=== PATIENT | female | born 1975 | race Caucasian/White ===

== ENCOUNTER 2016-07-04 12:19 | Outpatient (CLI) | payer MEDICAID | END 2016-07-04 12:20 | disposition home or self-care (01) | DX: Z36 Encounter for antenatal screening of mother (principal) ==

== ENCOUNTER 2016-08-05 11:11 | Outpatient (CLI) | payer MEDICAID | END 2016-08-05 11:12 | disposition home or self-care (01) | DX: Z36 Encounter for antenatal screening of mother (principal) ==

== ENCOUNTER 2016-10-20 08:00 | Outpatient (CLI) | payer MEDICAID | END 2016-10-20 08:01 | disposition home or self-care (01) | DX: Z36 Encounter for antenatal screening of mother (principal) ==

== ENCOUNTER 2016-11-14 11:03 | Outpatient (CLI) | payer MEDICAID ==
[2016-11-14 11:34] LABS: BASOPHILS # (AUTO) 0.1 10^3/uL (0.0-0.1); BASOPHILS % (AUTO) 0.8 %; EOSINOPHILS # (AUTO) 0.1 10^3/uL (0.0-0.7); HGB - HEMOGLOBIN 11.6 g/dL (12.0-16.0); LYMPHOCYTES # (AUTO) 2.5 10^3/uL (1.5-3.5); LYMPHOCYTES % (AUTO) 26.8 %; MEAN CORPUSCULAR VOLUME 88.5 fL (81.0-99.0); MEAN PLATELET VOLUME 9.3 fL (7.9-10.8); MONOCYTES # (AUTO) 0.7 10^3/uL (0.0-1.0); NEUTROPHILS % (AUTO) 64.4 %; RED BLOOD COUNT 3.73 10^6/uL (4.20-5.40); RED CELL DISTRIBUTION WIDTH 14.3 % (12.0-15.0); UNCORRECTED WHITE BLOOD COUNT 9.3 x10^3/uL; WHITE BLOOD COUNT 9.3 x10^3/uL (4.8-10.8)
== END 2016-11-14 12:30 | disposition home or self-care (01) ==
LOC: WFO 11:03 → OB 11:10 → WFO 12:30
PROVIDERS: ATTEND Obstetrics & Gynecology
DX: Z01.812 Encounter for preprocedural laboratory examination (principal); O34.219 Maternal care for unspecified type scar from previous cesarean delivery; N85.8 Other specified noninflammatory disorders of uterus
CPT/HCPCS: 36415; 85025; 86850; 86870; 86900; 86901

== ENCOUNTER 2016-11-16 05:34 | Inpatient (IN) | payer MEDICAID ==
--- NOTE | 2016-11-14 19:33 | PREOP HISTORY & PHYSICAL ---
DATE OF ADMISSION/SURGERY: 11/16/2016 HISTORY OF PRESENT ILLNESS: The patient is a 41-year-old female, 3, para 2, with an TAMMY of Ma y 17. Her last period was February 11. Early ultrasound at 9 weeks was consistent, as well as her u ltrasound mid trimester anatomy scan. The patient had an uncomplicated . She received RhoGAM at 28 weeks. She had received Tdap in the third trimester. She has had 2 previous sec tions and now wishes permanent sterilization. Her blood type is B-negative. She is immune to rubella. Hepatitis, HIV, and serology are all negative. Her glucose screen was 110. PAST HISTORY: The patient had 2 previous sections, the first in 2008 and the second in 2011. SOCIAL HISTORY: The patient is a nonsmoker. Denies alcohol or drugs. FAMILY HISTORY: Mother had lung cancer at age 50. Father: Diabetes, heart disease, and hypertension. REVIEW OF SYSTEMS: The patient had some depression previously and took medications. Amber love, she is not. ALLERGIES: NONE KNOWN, ALTHOUGH SHE NOW RELATES SHE MAY HAVE SOME DIFFICULTY WITH IBUPROFEN. PHYSICAL EXAMINATION: HEENT: Within normal limits. NECK: No thyromegaly. LUNGS: Clear. HEART: Regular rhythm. No murmur or gallop. ABDOMEN: Gravid. Fundal height 35 cm. Vertex is presenting. Placenta is anterior and ends above the i ncisional area. heart tones are normal. EXTREMITIES: Normal. NEUROLOGIC: Grossly intact. PELVIC EXAM: Not done at this time. IMPRESSION: 1. at term, with previous 2 sections. 2. Elective sterilization. PLAN: Repeat section and bilateral salpingectomy. The procedure has been reviewed with the p atient, as well as the risks. The permanency of the tubal procedure has been explained and is well un derstood. JOB #: [id number] EXT JOB #:[id number]
[2016-11-16] MEDS: LACTATED RINGERS 1,000 ML IV SCH ×2 (06:05→15:02)
[2016-11-16] MEDS ORDERED: ceFAZolin 2 GM/50 ML 50 ML IV SCH (06:45)
[2016-11-16] MEDS ORDERED: CITRIC ACID/SODIUM CITRATE 15 ML UDC PO SCH (07:00)
[2016-11-16] MEDS ORDERED: LACTATED RINGERS 1,500 ML IV SCH (07:00)
[2016-11-16] MEDS ORDERED: LACTATED RINGERS 1,000 ML IV ONE ×2 (07:29→08:04)
[2016-11-16] MEDS ORDERED: ePHEDrine 50 MG/ML VIAL IVP ONE (07:30)
[2016-11-16] MEDS ORDERED: MORPHINE PF 5 MG/10 ML AMP EP ONE (07:30)
[2016-11-16] MEDS ORDERED: OXYTOCIN 10 UNIT/ML VIAL IV ONE (07:30)
[2016-11-16] MEDS ORDERED: ONDANSETRON 4 MG/2 ML VIAL IVP ONE (07:30)
[2016-11-16] MEDS ORDERED: OXYTOCIN/LACTATED RINGERS 250 ML IV ONE (08:40)
[2016-11-16] MEDS ORDERED: ONDANSETRON 4 MG/2 ML VIAL IVP PRN ×2 (08:40→10:00)
[2016-11-16] MEDS ORDERED: ZOLPIDEM 5 MG TABLET PO PRN (08:40)
--- NOTE | 2016-11-16 08:53 | DELIVERY NOTE ---
Delivery Note - Instructions [place]: -Left hand click circles element as positive or present. -Right hand click slashes element as negative or not present. - Labor Labor: positive: Other (none) - Delivery Method Delivery Method: positive: Repeat - Presentation Presentation: positive: Vertex - Nuchal Cord Nuchal Cord: positive: None - Amniotic Fluid Description Amniotic Fluid Description: positive: Clear - Delivery Outcome Delivery Outcome: positive: Livebirth - [place]: positive: Bulb syringe, Stimulated (passed to Dr Sorensen), Warmed [place] sex: positive: Male - Cord Cord: positive: 3 vessels - Placenta Placenta: positive: Manual removal - Post Delivery Events Post Delivery Events: positive: No post delivery events - Delivery Comments (Free Text/Narrative) Delivery Comments (Free Text/Narrative): Repeat low transverse c/s done resulting in male , APGARS 8,9 Bilateral salpingectomy also done.EBL 1000 ml.
[2016-11-16] MEDS ORDERED: ACETAMINOPHEN 1,000 MG/100 ML 100 ML IV ONE (08:54)
[2016-11-16] MEDS ORDERED: LACTATED RINGERS 1,000 ML IV SCH (09:00)
--- NOTE | 2016-11-16 09:27 | OPERATIVE REPORT ---
DATE OF SURGERY: 11/16/2016 00:00:00 PREOPERATIVE DIAGNOSES 1. at term with 2 previous sections. 2. Elective sterilization. POSTOPERATIVE DIAGNOSES 1. delivered. 2. Elective sterilization. NAME OF PROCEDURES 1. Repeat section, low transverse. 2. Bilateral salpingectomy. SURGEON: Tobi Calvillo MD OPEN SOAPER TENDER: Brisa Burgos CNM, Rika Lima DO Shellfish Harvester: Ludmila Sorensen MD ANESTHESIA: Spinal. DESCRIPTION OF PROCEDURE: In the supine position with right hip elevation under spinal anesthesia, the abdomen was prepped and draped in usual sterile fashion. The previous Pfannenstiel cicatrix was sharply excised and incision was carried with Bovie to the fascia. The fascia was incised transversely and dissected free from the underlying rectus muscles. The peritoneum was opened vertically. The vesicouterine peritoneum was incised transversely over the lower uterine segment and the bladder was bluntly advanced. The myometrium was sharply incised and extended transversely in a blunt fashion. A female with Apgars of 8 and 9 was delivered from the vertex position at 0756. The infant weighed 7 pounds 13.2 ounces, and Apgars were 8 and 9. Placenta was manually removed. The myometrium was closed with 0 chromic in a running locking stitch and imbricated with 0 chromic in a Lembert fashion. Two [id number] sutures were placed for added hemostasis. Each fallopian tube was identified and elevated with [place] clamp. The mesosalpinx was opened with Bovie. The fimbrial ovarian attachment and the mid tube vessel were all clamped, divided, and ligated. Each specimen was submitted in toto. The abdominal cavity was irrigated with sterile saline. The parietal peritoneum was then approximated with 2-0 running Vicryl and a single 2-0 Vicryl was used to approximate the upper rectus muscles. The fascia was closed with running 0 Vicryl, 3-0 plain subcutaneous sutures were placed, and the skin was approximated with subcuticular 4-0 Vicryl. There were no intraoperative complications. Estimated blood loss was 1000 mL. The patient received 2 grams of Ancef preoperatively. JOB #: [id number] [facility] JOB #:[id number] [facility]
[2016-11-16] MEDS ORDERED: METOCLOPRAMIDE 10 MG/2 ML VIAL IVP PRN (10:00)
[2016-11-16] MEDS ORDERED: NALOXONE 0.4 MG/ML VIAL IVP PRN (10:00)
[2016-11-16] MEDS ORDERED: diphenhydrAMINE INJ 50 MG/ML VIAL IVP PRN (10:00)
[2016-11-16] MEDS ORDERED: MORPHINE 2 MG/ML SYRINGE IVP PRN (10:00)
[2016-11-16] MEDS: diphenhydrAMINE 25 MG CAPSULE PO PRN ×2 (10:14→18:22)
[2016-11-16] MEDS: oxyCODONE 5 MG TABLET PO PRN ×4 (10:21→22:11)
[2016-11-16] MEDS ORDERED: SODIUM CHLORIDE FLUSH 0.9% 10 ML SYRINGE IVP ONE ×4 (12:52→21:08)
[2016-11-16] MEDS: NALBUPHINE 20 MG/ML AMP IVP PRN ×3 (13:04→21:16)
[2016-11-16] MEDS: SIMETHICONE CHEW 80 MG TABLET PO SCH ×2 (14:19→22:11)
[2016-11-16] MEDS: ACETAMINOPHEN 500 MG TABLET PO SCH (16:50)
[2016-11-17] MEDS: ACETAMINOPHEN 500 MG TABLET PO SCH ×3 (01:00→16:51)
[2016-11-17] MEDS: diphenhydrAMINE 25 MG CAPSULE PO PRN ×2 (01:26→21:46)
[2016-11-17] MEDS: oxyCODONE 5 MG TABLET PO PRN ×2 (02:06→06:15)
[2016-11-17] MEDS ORDERED: SODIUM CHLORIDE FLUSH 0.9% 10 ML SYRINGE IVP ONE (05:35)
[2016-11-17] MEDS: SIMETHICONE CHEW 80 MG TABLET PO SCH ×3 (05:40→21:38)
[2016-11-17] MEDS: NALBUPHINE 20 MG/ML AMP IVP PRN (05:40)
[2016-11-17 06:08] LABS: BASOPHILS # (AUTO) 0.1 10^3/uL (0.0-0.1); BASOPHILS % (AUTO) 0.7 %; EOSINOPHILS # (AUTO) 0.1 10^3/uL (0.0-0.7); EOSINOPHILS % (AUTO) 0.7 %; HCT - HEMATOCRIT 35.4 % (37.0-47.0); HGB - HEMOGLOBIN 11.6 g/dL (12.0-16.0); LYMPHOCYTES % (AUTO) 16.4 %; MEAN CORPUSCULAR HGB CONC 32.9 g/dL (32.0-36.0); MEAN CORPUSCULAR VOLUME 91.2 fL (81.0-99.0); MEAN PLATELET VOLUME 9.5 fL (7.9-10.8); MONOCYTES # (AUTO) 0.8 10^3/uL (0.0-1.0); MONOCYTES % (AUTO) 6.7 %; NEUTROPHILS # (AUTO) 9.4 10^3/uL (1.5-6.6); NEUTROPHILS % (AUTO) 75.5 %; RED BLOOD COUNT 3.88 10^6/uL (4.20-5.40); RED CELL DISTRIBUTION WIDTH 14.3 % (12.0-15.0); UNCORRECTED WHITE BLOOD COUNT 12.4 x10^3/uL; WHITE BLOOD COUNT 12.4 x10^3/uL (4.8-10.8)
--- NOTE | 2016-11-17 08:25 | PROVIDER PROGRESS NOTE ---
Subjective - General Admit Date: 11/16/16 - Review of Systems Wound/Incisions: positive: No drainage General: positive: No symptoms Gastrointestinal: positive: No symptoms (Good pain control but continues to itch. No nausea or FLYNN) Objective - Patient Data Reviewed Vital Signs: Yes Vital Signs: Vital Signs x48h Temp Pulse Resp BP Pulse Ox 11/17/16 05:20 37.0 C 75 18 121/62 97 11/17/16 01:00 37.0 C 65 16 108/55 L 97 Weight: Weight 11/15/16 11/16/16 11/17/16 23:59 23:59 23:59 Weight (kg) 91.172 kg Intake & Output: Intake and Output Totals x24h 11/15/16 11/16/16 11/17/16 23:59 23:59 23:59 Intake Total 756 1500 Output Total 2700 4500 Balance -1944 -3000 - Lab Results Lab Results: 11/17/16 05:59 Other Lab Results: Lab Results x24hrs 11/17/16 Range/Units 05:59 WBC 12.4 H (4.8-10.8) x10^3/uL RBC 3.88 L (4.20-5.40) 10^6/uL Hgb 11.6 L (12.0-16.0) g/dL Hct 35.4 L (37.0-47.0) % MCV 91.2 (81.0-99.0) fL MCH 30.0 (27.0-31.0) pg MCHC 32.9 (32.0-36.0) g/dL RDW 14.3 (12.0-15.0) % Plt Count 259 (130-450) 10^3/uL MPV 9.5 (7.9-10.8) fL Neut # 9.4 H (1.5-6.6) 10^3/uL Lymph # 2.0 (1.5-3.5) 10^3/uL Freestone # 0.8 (0.0-1.0) 10^3/uL Eos # 0.1 (0.0-0.7) 10^3/uL Baso # 0.1 (0.0-0.1) 10^3/uL Absolute Nucleated RBC 0.00 x10^3/uL Nucleated RBCs 0.0 /100WBC - Current Medications Current Medications: Current Medications Generic Name Dose Route Start Last Admin Trade Name Freq PRN Reason Stop Dose Admin Acetaminophen 1,000 mg 11/16/16 17:00 11/17/16 01:00 Tylenol PO 1,000 mg Q8H GALILEA Administration Diphenhydramine HCl 25 mg 11/16/16 10:00 11/17/16 01:26 Benadryl PO 25 mg Q6H PRN Administration PRURITUS Lactated Ringer's 1,000 mls @ 150 mls/hr 11/16/16 07:00 11/16/16 15:02 Lr IV Not Given .Q6H40M GALILEA Lactated Ringer's 1,000 mls @ 100 mls/hr 11/16/16 09:00 11/16/16 15:02 Lr IV Not Given .Q10H GALILEA Nalbuphine HCl 5 mg 11/16/16 10:00 11/17/16 05:40 Nubain IVP 5 mg Q3HR PRN Administration PRURITIS Simethicone 80 mg 11/16/16 14:00 11/17/16 05:40 Mylicon PO 80 mg TID GALILEA Administration - Physical Exam Wound/Incisions: positive: Dressing dry and intact Abdomen: positive: Nml bowel sounds (only incisional pain.) Extremities: positive: Non-tender Impression/Plan - Problem List Problem List: Normal post op course. Excellent urinary output. Will switch to dilaudid in hopes of less itching.
[2016-11-17] MEDS: HYDROmorphone 2 MG TABLET PO PRN ×4 (09:01→21:36)
[2016-11-17] MEDS: CELECOXIB 100 MG CAPSULE PO SCH (13:59)
[2016-11-18] MEDS: ACETAMINOPHEN 500 MG TABLET PO SCH ×3 (00:22→15:48)
[2016-11-18] MEDS: CELECOXIB 100 MG CAPSULE PO SCH ×3 (00:23→21:23)
[2016-11-18] MEDS: HYDROmorphone 2 MG TABLET PO PRN ×4 (04:09→22:14)
[2016-11-18] MEDS: SIMETHICONE CHEW 80 MG TABLET PO SCH ×3 (06:22→22:28)
--- NOTE | 2016-11-18 09:01 | PROVIDER PROGRESS NOTE ---
Subjective - General Admit Date: 11/16/16 Procedure Date: 11/16/16 Post Op Days: 2 - Review of Systems Wound/Incisions: positive: Dressing dry and intact General: positive: No symptoms Gastrointestinal: positive: No symptoms (Good pain control but continues to itch. No nausea or FLYNN) Objective - Patient Data Reviewed Vital Signs: Yes Vital Signs: Vital Signs x48h Temp Resp BP 11/18/16 07:45 36.6 C 12 117/58 L Weight: Weight 11/16/16 11/17/16 11/18/16 23:59 23:59 23:59 Weight (kg) 91.172 kg Intake & Output: Intake and Output Totals x24h 11/16/16 11/17/16 11/18/16 23:59 23:59 23:59 Intake Total 756 1500 Output Total 2700 5000 Balance -1944 -3500 - Lab Results Lab Results: 11/17/16 05:59 - Current Medications Current Medications: Current Medications Generic Name Dose Route Start Last Admin Trade Name Freq PRN Reason Stop Dose Admin Acetaminophen 1,000 mg 11/16/16 17:00 11/18/16 08:25 Tylenol PO 1,000 mg Q8H GALILEA Administration Celecoxib 200 mg 11/17/16 14:00 11/18/16 08:24 Celebrex PO 200 mg BID GALILEA Administration Diphenhydramine HCl 25 mg 11/16/16 10:00 11/17/16 21:46 Benadryl PO 25 mg Q6H PRN Administration PRURITUS Hydromorphone HCl 2 - 4 mg 11/17/16 08:20 11/18/16 04:09 Dilaudid PO 4 mg Q6HR PRN Administration Severe Pain Lactated Ringer's 1,000 mls @ 150 mls/hr 11/16/16 07:00 11/16/16 15:02 Lr IV Not Given .Q6H40M GALILEA Lactated Ringer's 1,000 mls @ 100 mls/hr 11/16/16 09:00 11/16/16 15:02 Lr IV Not Given .Q10H GALILEA Nalbuphine HCl 5 mg 11/16/16 10:00 11/17/16 05:40 Nubain IVP 5 mg Q3HR PRN Administration PRURITIS Simethicone 80 mg 11/16/16 14:00 11/18/16 06:22 Mylicon PO 80 mg TID GALILEA Administration - Physical Exam Wound/Incisions: positive: Healing well General Appearance: positive: No acute distress Abdomen: positive: Non-tender (Lochia small) Impression/Plan - Problem List Problem List: Doing great with celebrex added. Will add colace. Home tomorrow. Pain control excellent now. No FLYNN!
[2016-11-18] MEDS: DOCUSATE SODIUM 100 MG CAPSULE PO SCH ×2 (09:58→21:00)
[2016-11-19] MEDS: ACETAMINOPHEN 500 MG TABLET PO SCH ×2 (01:30→09:08)
[2016-11-19] MEDS: HYDROmorphone 2 MG TABLET PO PRN ×2 (04:48→11:09)
[2016-11-19] MEDS: SIMETHICONE CHEW 80 MG TABLET PO SCH (06:44)
[2016-11-19] MEDS: CELECOXIB 100 MG CAPSULE PO SCH (09:07)
[2016-11-19] MEDS: DOCUSATE SODIUM 100 MG CAPSULE PO SCH (09:07)
--- NOTE | 2016-11-19 09:08 | Discharge Plan ---
Discharge Plan Disposition: 01 Home, Self Care Diet: Regular Activity Restrictions: Activity as Tolerated Shower Restrictions: No Driving Restrictions: Yes (2 weeks) No Smoking: If you smoke, Please STOP! Call for help.
[2016-11-19] MEDS: diphenhydrAMINE 25 MG CAPSULE PO PRN (11:10)
[2016-11-19 12:24] VITALS: BP 120/81
--- NOTE | 2016-11-19 23:19 | DISCHARGE SUMMARY ---
DATE OF ADMISSION: 11/16/2016 DATE OF DISCHARGE: 11/19/2016 ADMISSION DIAGNOSES: at term with previous section and elective sterilization. OPERATION: Repeat section, low transverse and bilateral salpingectomy. DISCHARGE DIAGNOSES: 1. delivered. 2. Elective sterilization. HISTORY OF PRESENT ILLNESS: The patient is a 41-year-old female, 3, para 2 with 2 previous ce sarean sections. Her TAMMY by last period and first and second trimester ultrasound consistent with . The was essentially uncomplicated. She is Rh negative and received RhoGAM at 28 we eks. She also received Tdap. PHYSICAL EXAMINATION ON ADMISSION: Normal with the exception of the following: The abdomen was gravid , vertex was presenting. heart tones were normal. LABORATORY STUDIES CONDUCTED: Discharge hemoglobin 11.6, baby's blood type was A negative. PATIENT COURSE AND TREATMENT: On the day of admission under spinal anesthesia, the repeat se ction was done resulting in a 7 pound 13 ounce male with Apgars of 8 and 9. A bilateral salpingectomy was also performed. Postoperatively, the patient did very well. She did have some itching from the n arcotics and pain relief was achieved with Tylenol and Celebrex and Dilaudid. As opposed to previous she had no postspinal headache. Her pain was well controlled at the time of discharge, she had a bowel movement and the incision was healing well. DISCHARGE MEDICATIONS: Include vitamins, Celebrex and Dilaudid. Recommended followup is for 2 weeks. JOB #: [id number] EXT JOB #:[id number]
== END 2016-11-19 12:30 | disposition home or self-care (01) | DRG 766 ==
LOC: OB 05:34
PROVIDERS: ADMIT Obstetrics & Gynecology; ATTEND Obstetrics & Gynecology
PROC: 0UT70ZZ Resection of Bilateral Fallopian Tubes, Open Approach (ICD-10-PCS; 2016-11-16)
PROC: 10D00Z1 Extraction of Products of Conception, Low, Open Approach (ICD-10-PCS; principal; 2016-11-16 07:30)
DX: O34.211 Maternal care for low transverse scar from previous cesarean delivery (principal); N85.8 Other specified noninflammatory disorders of uterus; Z30.2 Encounter for sterilization; Z3A.39 39 weeks gestation of pregnancy; Z37.0 Single live birth
CPT/HCPCS: 36415; 85025; 88302

== ENCOUNTER 2018-04-03 08:00 | Outpatient (CLI) | payer MEDICAID ==
[2018-04-03 12:30] LABS: ALBUMIN 3.8 g/dL (3.2-5.5); ALBUMIN/GLOBULIN RATIO 1.1 (1.0-2.2); ALKALINE PHOSPHATASE 40 IU/L (42-121); ALT ALANINE AMINOTRANSFERASE 18 IU/L (10-60); AST ASPARTATE AMINOTRANSFERASE 24 IU/L (10-42); BILIRUBIN,TOTAL 0.4 mg/dL (0.2-1.0); BUN - BLOOD UREA NITROGEN 19 mg/dL (6-20); CARBON DIOXIDE - CO2 21 mmol/L (21-32); CHLORIDE 108 mmol/L (101-111); CHOL/HDL RATIO 3.9 (<4.4); CHOLESTEROL 209 mg/dL; CREATININE 0.7 mg/dL (0.4-1.0); GFR - MDRD 92 (>89); GLUCOSE 102 mg/dL (70-100); HDL CHOLESTEROL 54 mg/dL; LDL CHOLESTEROL,CALCULATED 132 mg/dL; LDL/HDL RATIO 2.4 (<4.4); SODIUM 136 mmol/L (135-145); TOTAL PROTEIN 7.2 g/dL (6.7-8.2); VLDL CHOLESTEROL 23 mg/dL
[2018-04-03 13:09] LABS: BASOPHILS # (AUTO) 0.1 10^3/uL (0.0-0.1); BASOPHILS % (AUTO) 0.8 %; EOSINOPHILS # (AUTO) 0.2 10^3/uL (0.0-0.7); EOSINOPHILS % (AUTO) 3.3 %; HGB - HEMOGLOBIN 13.3 g/dL (12.0-16.0); LYMPHOCYTES # (AUTO) 2.2 10^3/uL (1.5-3.5); LYMPHOCYTES % (AUTO) 35.5 %; MEAN CORPUSCULAR HEMOGLOBIN 30.6 pg (27.0-31.0); MEAN CORPUSCULAR HGB CONC 33.9 g/dL (32.0-36.0); MEAN CORPUSCULAR VOLUME 90.3 fL (81.0-99.0); MEAN PLATELET VOLUME 9.3 fL (7.9-10.8); MONOCYTES # (AUTO) 0.4 10^3/uL (0.0-1.0); MONOCYTES % (AUTO) 6.3 %; NEUTROPHILS # (AUTO) 3.4 10^3/uL (1.5-6.6); NEUTROPHILS % (AUTO) 54.1 %; PLT - PLATELET COUNT 345 10^3/uL (130-450); RED BLOOD COUNT 4.35 10^6/uL (4.20-5.40); RED CELL DISTRIBUTION WIDTH 13.3 % (12.0-15.0); WHITE BLOOD COUNT 6.3 x10^3/uL (4.8-10.8)
== END 2018-04-03 08:01 | disposition home or self-care (01) ==
LOC: LAB.N 08:00
PROVIDERS: ATTEND Nurse Practitioner Gerontology
DX: Z13.9 Encounter for screening, unspecified (principal)
CPT/HCPCS: 36415; 80053; 80061; 83721; 84443; 85025

== ENCOUNTER 2019-04-30 09:06 | Outpatient (CLI) | payer MEDICAID ==
[2019-04-30 12:01] LABS: BASOPHILS # (AUTO) 0.1 10^3/uL (0.0-0.1); BASOPHILS % (AUTO) 1.3 %; EOSINOPHILS # (AUTO) 0.1 10^3/uL (0.0-0.7); EOSINOPHILS % (AUTO) 1.8 %; HGB - HEMOGLOBIN 13.2 g/dL (12.0-16.0); LYMPHOCYTES # (AUTO) 2.4 10^3/uL (1.5-3.5); LYMPHOCYTES % (AUTO) 38.5 %; MEAN CORPUSCULAR HEMOGLOBIN 29.3 pg (27.0-31.0); MEAN CORPUSCULAR HGB CONC 32.1 g/dL (32.0-36.0); MEAN CORPUSCULAR VOLUME 91.3 fL (81.0-99.0); MEAN PLATELET VOLUME 11.3 fL (7.9-10.8); MONOCYTES # (AUTO) 0.4 10^3/uL (0.0-1.0); MONOCYTES % (AUTO) 7.2 %; NEUTROPHILS # (AUTO) 3.1 10^3/uL (1.5-6.6); PLT - PLATELET COUNT 394 10^3/uL (130-450); RED CELL DISTRIBUTION WIDTH 13.8 % (12.0-15.0); WHITE BLOOD COUNT 6.1 x10^3/uL (4.8-10.8)
[2019-04-30 12:17] LABS: ALBUMIN 3.9 g/dL (3.2-5.5); ALKALINE PHOSPHATASE 35 IU/L (42-121); ALT ALANINE AMINOTRANSFERASE 18 IU/L (10-60); AST ASPARTATE AMINOTRANSFERASE 21 IU/L (10-42); BILIRUBIN,TOTAL 0.5 mg/dL (0.2-1.0); BUN - BLOOD UREA NITROGEN 19 mg/dL (6-20); CALCIUM 9.2 mg/dL (8.5-10.3); CARBON DIOXIDE - CO2 21 mmol/L (21-32); CHLORIDE 107 mmol/L (101-111); CHOL/HDL RATIO 3.8 (<4.4); CHOLESTEROL 226 mg/dL; CREATININE 0.7 mg/dL (0.4-1.0); GFR - MDRD 92 (>89); GLUCOSE 102 mg/dL (70-100); HDL CHOLESTEROL 59 mg/dL; LDL CHOLESTEROL,CALCULATED 143 mg/dL; LDL/HDL RATIO 2.4 (<4.4); SODIUM 139 mmol/L (135-145); TOTAL PROTEIN 7.8 g/dL (6.7-8.2); VLDL CHOLESTEROL 24 mg/dL
== END 2019-04-30 23:59 | disposition home or self-care (01) ==
LOC: LAB.N 09:06
PROVIDERS: ATTEND Nurse Practitioner Gerontology
DX: Z13.9 Encounter for screening, unspecified (principal); E78.5 Hyperlipidemia, unspecified; F32.9 Major depressive disorder, single episode, unspecified; F41.9 Anxiety disorder, unspecified
CPT/HCPCS: 36415; 80053; 80061; 83721; 85025

== ENCOUNTER 2020-06-25 13:47 | Outpatient (CLI) | payer MEDICAID ==
--- NOTE | 2020-06-29 12:43 | Mammography Report ---
BILATERAL DIGITAL SCREENING MAMMOGRAM 3D/2D: 06/25/2020 CLINICAL: Baseline exam. Routine screening. No prior exams were available for comparison. There are scattered fibroglandular elements in both br easts. No significant masses, calcifications, or other findings are seen in either breast. IMPRESSION: NEGATIVE There is no mammographic evidence of malignancy. A 1 year screening mammogram is recommended. This exam was interpreted at Station ID: [id number]. NOTE: For mammograms, a report in lay terms will be sent to the patient. Approximately 15% of breast malignancies will not be visualized mammographically. In the management of a palpable breast mass, a negative mammogram must not discourage biopsy of a clinically suspicious lesion. Electronically Signed By: Wade kim/penrad:06/25/2020 16:21:48 ACR BI-RADS Category 1: Negative 3341F PARENCHYMAL PATTERN: (A) - The breast(s) demonstrate(s) scattered fibroglandular densities. BI-RADS CATEGORY: (1) - 1 RECOMMENDATION: (ANNUAL) - Recommend routine annual screening mammography. [id number] 1 year screening LATERALITY: (B)
== END 2020-06-25 13:48 | disposition home or self-care (01) ==
LOC: DI.N 13:47
PROVIDERS: ATTEND Nurse Practitioner
DX: Z12.31 Encounter for screening mammogram for malignant neoplasm of breast (principal)

== ENCOUNTER 2020-07-13 15:23 | Emergency (ER) | payer MEDICAID ==
[2020-07-13 15:30] VITALS: BP 132/75
[2020-07-13] MEDS ORDERED: LIDOCAINE PATCH 5% TOP STA (15:45)
[2020-07-13] MEDS ORDERED: MELOXICAM 7.5 MG TABLET PO STA (15:45)
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
== END 2020-07-13 16:35 | disposition home or self-care (01) ==
LOC: ED 15:23
DX: S22.41XA Multiple fractures of ribs, right side, initial encounter for closed fracture (principal); V86.59XA Driver of other special all-terrain or other off-road motor vehicle injured in nontraffic accident, initial encounter; Y93.89 Activity, other specified; Z87.891 Personal history of nicotine dependence
CPT/HCPCS: 71101; 99283; 99284; A9270

== ENCOUNTER 2020-07-22 14:22 | Outpatient (CLI) | payer MEDICAID ==
--- NOTE | 2020-07-22 15:06 | XRAY Report ---
PROCEDURE: Ribs w/PA Chest RT INDICATIONS: RIGHT RIB FRACTURES TECHNIQUE: 2 views of the right ribs were acquired, along with a single view chest. COMPARISON: 07/13/2020 FINDINGS: Surgical changes and devices: None. Bones and chest wall: Compared to previous study, previously described subtle nondisplaced fracture i nvolving right posterior 10th rib is again seen with subtle amount of callus formation surrounding fr acture site. Previously described deformity involving right posterior lateral seventh rib is again se en and unchanged. No new fracture or dislocation is seen.. No suspicious bony lesions. Overlying so ft tissues appear unremarkable. Lungs and pleura: No pleural effusions or pneumothorax. Lungs appear clear. Mediastinum: Mediastinal contours appear normal. Heart size is normal. IMPRESSION: Suggestion of small amount of healing at right posterior 10th rib fracture site with callus formation . Stable-appearing deformity involving right posterior lateral seventh rib. No new fracture or disloc ation. Bilateral lungs are clear. Reviewed by: Nestor Villela MD on 07/22/2020 3:04 PM PST Approved by: Nestor Villela MD on 07/22/2020 3:04 PM PST Station ID: [id number]
== END 2020-07-22 23:59 | disposition home or self-care (01) ==
LOC: DI.WCP 14:22
PROVIDERS: ATTEND Family Medicine
DX: S22.41XA Multiple fractures of ribs, right side, initial encounter for closed fracture (principal)

== ENCOUNTER 2021-05-04 07:50 | Outpatient (CLI) | payer MEDICAID ==
[2021-05-04 11:45] LABS: BASOPHILS # (AUTO) 0.1 10^3/uL (0.0-0.1); BASOPHILS % (AUTO) 0.9 %; EOSINOPHILS # (AUTO) 0.1 10^3/uL (0.0-0.7); EOSINOPHILS % (AUTO) 1.2 %; HCT - HEMATOCRIT 40.5 % (37.0-47.0); HGB - HEMOGLOBIN 13.5 g/dL (12.0-16.0); LYMPHOCYTES # (AUTO) 2.1 10^3/uL (1.5-3.5); LYMPHOCYTES % (AUTO) 29.6 %; MEAN CORPUSCULAR HEMOGLOBIN 31.7 pg (27.0-31.0); MEAN CORPUSCULAR HGB CONC 33.3 g/dL (32.0-36.0); MEAN CORPUSCULAR VOLUME 95.1 fL (81.0-99.0); MEAN PLATELET VOLUME 10.7 fL (7.9-10.8); MONOCYTES # (AUTO) 0.5 10^3/uL (0.0-1.0); MONOCYTES % (AUTO) 6.8 %; NEUTROPHILS # (AUTO) 4.3 10^3/uL (1.5-6.6); NEUTROPHILS % (AUTO) 61.2 %; PLT - PLATELET COUNT 444 10^3/uL (130-450); RED BLOOD COUNT 4.26 10^6/uL (4.20-5.40); RED CELL DISTRIBUTION WIDTH 13.5 % (12.0-15.0)
[2021-05-04 12:04] LABS: ALBUMIN 4.4 g/dL (3.2-5.5); ALBUMIN/GLOBULIN RATIO 1.3 (1.0-2.2); ALKALINE PHOSPHATASE 46 IU/L (42-121); ALT ALANINE AMINOTRANSFERASE 21 IU/L (10-60); AST ASPARTATE AMINOTRANSFERASE 23 IU/L (10-42); BILIRUBIN,TOTAL 0.5 mg/dL (0.2-1.0); BUN - BLOOD UREA NITROGEN 16 mg/dL (6-20); CALCIUM 9.8 mg/dL (8.5-10.3); CARBON DIOXIDE - CO2 24 mmol/L (21-32); CHLORIDE 104 mmol/L (101-111); CHOL/HDL RATIO 3.6 (<4.4); CHOLESTEROL 233 mg/dL; CREATININE 0.8 mg/dL (0.4-1.0); GFR - MDRD 78 (>89); GLUCOSE 89 mg/dL (70-100); HDL CHOLESTEROL 65 mg/dL; LDL CHOLESTEROL,CALCULATED 136 mg/dL; LDL/HDL RATIO 2.1 (<4.4); POTASSIUM 4.2 mmol/L (3.5-5.0); SODIUM 137 mmol/L (135-145); TOTAL PROTEIN 7.9 g/dL (6.7-8.2); TRIGLYCERIDES 160 mg/dL; VLDL CHOLESTEROL 32 mg/dL
[2021-05-04 12:12] LABS: THYROID STIMULATING HORMONE 2.49 uIU/mL (0.34-5.60)
== END 2021-05-04 23:59 | disposition home or self-care (01) ==
LOC: LAB.WCP 07:50
PROVIDERS: ATTEND Internal Medicine
DX: E78.5 Hyperlipidemia, unspecified (principal); F41.9 Anxiety disorder, unspecified; F32.A Depression, unspecified; D47.09 Other mast cell neoplasms of uncertain behavior
CPT/HCPCS: 36415; 80053; 80061; 83721; 84443; 85025

== ENCOUNTER 2022-11-01 08:23 | Outpatient (CLI) | payer MEDICAID ==
[2022-11-01 12:00] LABS: BASOPHILS # (AUTO) 0.1 10^3/uL (0.0-0.1); BASOPHILS % (AUTO) 1.1 %; EOSINOPHILS # (AUTO) 0.2 10^3/uL (0.0-0.7); EOSINOPHILS % (AUTO) 2.6 %; HCT - HEMATOCRIT 42.3 % (37.0-47.0); HGB - HEMOGLOBIN 14.2 g/dL (12.0-16.0); LYMPHOCYTES # (AUTO) 2.6 10^3/uL (1.5-3.5); LYMPHOCYTES % (AUTO) 40.4 %; MEAN CORPUSCULAR HEMOGLOBIN 31.2 pg (27.0-31.0); MEAN CORPUSCULAR HGB CONC 33.6 g/dL (32.0-36.0); MEAN PLATELET VOLUME 11.4 fL (7.9-10.8); MONOCYTES # (AUTO) 0.5 10^3/uL (0.0-1.0); MONOCYTES % (AUTO) 7.8 %; NEUTROPHILS # (AUTO) 3.1 10^3/uL (1.5-6.6); NEUTROPHILS % (AUTO) 47.9 %; PLT - PLATELET COUNT 348 10^3/uL (130-450); RED BLOOD COUNT 4.55 10^6/uL (4.20-5.40); RED CELL DISTRIBUTION WIDTH 13.2 % (12.0-15.0); WHITE BLOOD COUNT 6.4 x10^3/uL (4.8-10.8)
[2022-11-01 12:14] LABS: ALBUMIN 4.2 g/dL (3.2-5.5); ALBUMIN/GLOBULIN RATIO 1.3 (1.0-2.2); ALKALINE PHOSPHATASE 31 IU/L (42-121); ALT ALANINE AMINOTRANSFERASE 16 IU/L (10-60); AST ASPARTATE AMINOTRANSFERASE 19 IU/L (10-42); BILIRUBIN,TOTAL 0.5 mg/dL (0.2-1.0); BUN - BLOOD UREA NITROGEN 18 mg/dL (6-20); CALCIUM 9.1 mg/dL (8.5-10.3); CARBON DIOXIDE - CO2 22 mmol/L (21-32); CHLORIDE 109 mmol/L (101-111); CHOL/HDL RATIO 3.5 (<4.4); CHOLESTEROL 202 mg/dL; CREATININE 0.7 mg/dL (0.4-1.0); GFR - MDRD 90 (>89); GLUCOSE 93 mg/dL (70-100); HDL CHOLESTEROL 58 mg/dL; LDL CHOLESTEROL,CALCULATED 130 mg/dL; LDL/HDL RATIO 2.2 (<4.4); POTASSIUM 4.4 mmol/L (3.5-5.0); SODIUM 137 mmol/L (135-145); TOTAL PROTEIN 7.5 g/dL (6.7-8.2); TRIGLYCERIDES 70 mg/dL; VLDL CHOLESTEROL 14 mg/dL
[2022-11-01 12:25] LABS: THYROID STIMULATING HORMONE 2.72 uIU/mL (0.34-5.60)
== END 2022-11-01 08:24 | disposition home or self-care (01) ==
LOC: LAB.N 08:23
PROVIDERS: ATTEND Internal Medicine
DX: E78.5 Hyperlipidemia, unspecified (principal); F41.9 Anxiety disorder, unspecified; F32.A Depression, unspecified; D47.01 Cutaneous mastocytosis
CPT/HCPCS: 36415; 80053; 80061; 83721; 84443; 85025

== ENCOUNTER 2023-04-10 08:00 | Outpatient (CLI) | payer MEDICAID | END 2023-04-10 23:59 | disposition home or self-care (01) | LOC: LAB.N 08:00 | PROVIDERS: ATTEND Physician Assistant Medical | DX: N39.0 Urinary tract infection, site not specified (principal) | CPT/HCPCS: 87086 ==

== ENCOUNTER 2023-05-10 12:49 | Outpatient (CLI) | payer MEDICAID ==
--- NOTE | 2023-05-11 10:06 | Mammography Report ---
BILATERAL DIGITAL SCREENING MAMMOGRAM 3D/2D: 05/10/2023 CLINICAL: Routine screening. Comparison is made to exam dated: 06/25/2020 mammogram - [facility]. There are scattered areas of fibroglandular density in both breasts (category b / 25%-50% glandular t issue). No significant masses, calcifications, or other findings are seen in either breast. There has been no significant interval change. IMPRESSION: NEGATIVE There is no mammographic evidence of malignancy. A 1 year screening mammogram is recommended. Based on the Tyrer Cuzick model (a risk assessment model) the patients lifetime risk is 9.9% and her 10 year risk is 1.9%. According to the ACR, ACS, and NCCN guidelines, an annual breast MRI exam julien g with mammogram is recommended if the patients lifetime risk is 20% or greater. This exam was interpreted at Station ID: [id number]. NOTE: For mammograms, a report in lay terms will be sent to the patient. Approximately 15% of breast malignancies will not be visualized mammographically. In the management of a palpable breast mass, a negative mammogram must not discourage biopsy of a clinically suspicious lesion. Electronically Signed By: Jim Davis M.D. atdorian/demar:05/10/2023 18:58:22 letter sent: No_Letter ACR BI-RADS Category 1: Negative 3341F PARENCHYMAL PATTERN: (A) - The breast(s) demonstrate(s) scattered fibroglandular densities. BI-RADS CATEGORY: (1) - 1 Mammogram [id number] 1 year screening LATERALITY: (B)
== END 2023-05-10 12:50 | disposition home or self-care (01) ==
LOC: DI.N 12:49
PROVIDERS: ATTEND Internal Medicine
DX: Z12.31 Encounter for screening mammogram for malignant neoplasm of breast (principal); R92.323 Mammographic fibroglandular density, bilateral breasts

== ENCOUNTER 2023-10-31 09:01 | Outpatient (CLI) | payer MEDICAID ==
[2023-10-31 12:10] LABS: BASOPHILS # (AUTO) 0.1 10^3/uL (0.0-0.1); BASOPHILS % (AUTO) 1.2 %; EOSINOPHILS # (AUTO) 0.1 10^3/uL (0.0-0.7); EOSINOPHILS % (AUTO) 1.7 %; HCT - HEMATOCRIT 39.7 % (37.0-47.0); LYMPHOCYTES # (AUTO) 5.2 10^3/uL (1.5-3.5); LYMPHOCYTES % (AUTO) 61.2 %; MEAN CORPUSCULAR HGB CONC 32.7 g/dL (32.0-36.0); MEAN CORPUSCULAR VOLUME 91.5 fL (81.0-99.0); MEAN PLATELET VOLUME 10.9 fL (7.9-10.8); MONOCYTES # (AUTO) 0.8 10^3/uL (0.0-1.0); MONOCYTES % (AUTO) 8.8 %; NEUTROPHILS # (AUTO) 2.3 10^3/uL (1.5-6.6); NEUTROPHILS % (AUTO) 26.9 %; PLT - PLATELET COUNT 355 10^3/uL (130-450); RED BLOOD COUNT 4.34 10^6/uL (4.20-5.40); RED CELL DISTRIBUTION WIDTH 14.1 % (12.0-15.0); WHITE BLOOD COUNT 8.5 x10^3/uL (4.8-10.8)
[2023-10-31 12:40] LABS: ALBUMIN 4.1 g/dL (3.2-5.5); ALBUMIN/GLOBULIN RATIO 1.2 (1.0-2.2); ALKALINE PHOSPHATASE 36 IU/L (42-121); ALT ALANINE AMINOTRANSFERASE 52 IU/L (10-60); AST ASPARTATE AMINOTRANSFERASE 26 IU/L (10-42); BILIRUBIN,TOTAL 0.4 mg/dL (0.2-1.0); BUN - BLOOD UREA NITROGEN 15 mg/dL (6-20); CARBON DIOXIDE - CO2 25 mmol/L (21-32); CHLORIDE 107 mmol/L (101-111); CHOL/HDL RATIO 4.8 (<4.4); CHOLESTEROL 206 mg/dL; CREATININE 0.7 mg/dL (0.6-1.3); GFR - MDRD 90 (>89); GLUCOSE 92 mg/dL (74-104); HDL CHOLESTEROL 43 mg/dL; LDL CHOLESTEROL,CALCULATED 138 mg/dL; LDL/HDL RATIO 3.2 (<4.4); POTASSIUM 4.4 mmol/L (3.5-4.5); SODIUM 137 mmol/L (135-145); TOTAL PROTEIN 7.4 g/dL (6.4-8.9); TRIGLYCERIDES 126 mg/dL (48-352); VLDL CHOLESTEROL 25 mg/dL
== END 2023-10-31 09:02 | disposition home or self-care (01) ==
LOC: LAB.N 09:01
PROVIDERS: ATTEND Internal Medicine
DX: N95.1 Menopausal and female climacteric states (principal); R23.2 Flushing; D47.01 Cutaneous mastocytosis; E78.5 Hyperlipidemia, unspecified; F41.9 Anxiety disorder, unspecified; F32.A Depression, unspecified
CPT/HCPCS: 36415; 80053; 80061; 83001; 83002; 83721; 84443; 85025